=== PATIENT | female | born 1995 ===

== ENCOUNTER 2018-06-09 09:13 | Emergency (ER) | payer OTHER ==
[2018-06-09 09:38] VITALS: BP 118/67
--- NOTE | 2018-06-09 09:56 | UC ---
Complaint Female HPI - HPI Summary HPI Summary: This is peng Hernandez documenting for Dr. Oli Ortiz MD. Pt is 22 y/o F who presents to [facility] c/o dysuria, frequency, and urgency for last 2 days. Pt states on 05/21/18 she was diagnosed with a UTI while traveling in [place] and was on placed on ciprofloxacin for 7 days per nurse's report. Her symptoms improved, but 2 days ago she started to have discomfort again with urination, which has now gotten worse. Rates her pain intensity as 3/10 in severity. Notes intermittent back pain and chills. [place] hot last night. Denies abdominal pain. - History Of Current Complaint Chief Complaint: UCGU Stated Complaint: URINARY COMPLAINT Time Seen by Provider: 06/09/18 09:25 Hx Obtained From: Patient Hx Last Menstrual Period: iud Onset/Duration: Lasting Days, Still Present Severity Initially: Mild Severity Currently: Mild Pain Intensity: 3 Pain Scale Used: 0-10 Numeric Associated Signs And Symptoms: Positive: Back Pain - Allergies/Home Medications Allergies/Adverse Reactions: Allergies Allergy/AdvReac Type Severity Reaction Status Date / Time hydrocodone Allergy Nausea Verified 06/09/18 09:30 Home Medications: Home Medications Levonorgestrel (Iud) [Mirena IUD] 1 .ROUTE 06/09/18 [History] PMH/Surg Hx/FS Hx/Imm Hx Endocrine History: Diabetes - NEGATIVE Cardiovascular History: Hypertension - NEGATIVE - Surgical History Surgical History: Yes Surgery Procedure, Year, and Place: Jaw surgery on 06/05/18 - Family History Known Family History: Negative: Hypertension - Social History Alcohol Use: Weekly Substance Use Type: None Smoking Status (MU): Former Smoker Review of Systems Constitutional: Chills Gastrointestinal: Abdominal Pain - NEGATIVE Genitourinary: Dysuria, Frequency, Urgency Musculoskeletal: Other: - Intermittent back pain All Other Systems Reviewed And Are Negative: Yes Physical Exam - Summary Physical Exam Summary: VITAL SIGNS: Reviewed. GENERAL: Patient is a well-developed and nourished female who is lying comfortable in the stretcher. Patient is not in any acute respiratory distress. HEAD AND FACE: Normocephalic EYES: PERRLA, EOMI x 2. EARS: Hearing grossly intact. MOUTH: Oropharynx within normal limits. NECK: Supple, trachea is midline, no adenopathy, no JVD, no carotid bruit. CHEST: Symmetric, no tenderness at palpation LUNGS: Clear to auscultation bilaterally. No wheezing or crackles. CVS: Regular rate and rhythm, S1 and S2 present, no murmurs or gallops appreciated. ABDOMEN: Soft, non-tender. Bowel sounds are normal. No abdominal abnormal pulsations. EXTREMITIES: Full ROM in all major joints, no edema, no cyanosis or clubbing. NEURO: Alert and oriented x 3. No acute neurological deficits. Speech is normal and follows commands. SKIN: Dry and warm Triage Information Reviewed: Yes Vital Signs: Initial Vital Signs Temp 99.3 F 06/09/18 09:31 Pulse 98 06/09/18 09:31 Resp 16 06/09/18 09:31 BP 118/67 06/09/18 09:31 Pulse Ox 98 06/09/18 09:31 Vital Signs Reviewed: Yes Complaint Female Dx - Course Course Of Treatment: Patient is a 22-year-old female who presents to the emergency room with a chief complaint of having dysuria, urinary frequency and urgency. Urinalysis has positive leukocytes. Therefore the patient will be given a prescription for ciprofloxacin and discharged home with follow-up with primary care physician. We will send the urine for cultures. The patient is hemodynamically stable and alert 3. - Differential Dx/Diagnosis Differential Diagnosis/HQI/PQRI: Pelvic Inflammatory Disease, Sexually Transmitted Disease, Urinary Tract Infection Provider Diagnoses: Urinary tract infection Discharge - Sign-Out/Discharge Documenting (check all that apply): Patient Departure - Discharge Plan Condition: Stable Disposition: HOME Prescriptions: Ciprofloxacin TAB* [Cipro 500 MG TAB*] 500 mg PO BID #6 tab Patient Education Materials: Urinary Tract Infection in Women (DC) [place]: [facility] [place] [facility] [Outside] No Primary Care Phys,NOPCP [Primary Care Provider] - Additional Instructions: Take medications as instructed and adhere to plan Take Acetaminophen or ibuprofen for pain or fever Increase your fluid intake Return to the or go to the emergency department if symptoms worsen Follow-up with primary care physician in next 2-3 days - Billing Disposition and Condition Condition: STABLE Disposition: Home
--- NOTE | 2018-06-10 17:28 | UC ---
- Progress Note Progress Note: Urine culture preliminary report with moderate Escherichia coli. Patient on ciprofloxacin, recommend no treatment at this time and plan to follow up on final sensitivity report. Discharge - Sign-Out/Discharge Documenting (check all that apply): Post-Discharge Follow Up - Discharge Plan Condition: Stable Disposition: HOME Prescriptions: Ciprofloxacin TAB* [Cipro 500 MG TAB*] 500 mg PO BID #6 tab Patient Education Materials: Urinary Tract Infection in Women (DC) Referrals: [facility] [place] [facility] [Outside] No Primary Care Phys,NOPCP [Primary Care Provider] - Additional Instructions: Take medications as instructed and adhere to plan Take Acetaminophen or ibuprofen for pain or fever Increase your fluid intake Return to the or go to the emergency department if symptoms worsen Follow-up with primary care physician in next 2-3 days - Billing Disposition and Condition Condition: STABLE Disposition: Home
--- NOTE | 2018-06-11 21:34 | UC ---
- Progress Note Progress Note: 06/11/2018 Urine culture positive for E.coli. Pt Rx Ciprofloxacin PO. Urine culture final: resistance to Ciprofloxacin PO. New Rx sent to pharmacy for Bactrim PO BID x 7 days. Please call Pt back and let her know of new change in medication. Thank you Stephanie Juarez PA-C Discharge - Sign-Out/Discharge Documenting (check all that apply): Patient Departure - D/c home - Discharge Plan Condition: Stable Disposition: HOME Prescriptions: Sulfamethox/Trimethoprim DS* [Bactrim DS 800/160 TAB*] 1 tab PO BID #14 tab Patient Education Materials: Urinary Tract Infection in Women (DC) [place] [facility] [place] [facility] [place]Outside] No Primary Care Phys,NOPCP [Primary Care Provider] - Additional Instructions: Take medications as instructed and adhere to plan Take Acetaminophen or ibuprofen for pain or fever Increase your fluid intake Return to the or go to the emergency department if symptoms worsen Follow-up with primary care physician in next 2-3 days - Billing Disposition and Condition Condition: STABLE Disposition: Home
== END 2018-06-09 10:00 | disposition home or self-care (01) ==
LOC: UCEAST 09:13
DX: N39.0 Urinary tract infection, site not specified (principal); B96.20 Unspecified Escherichia coli [E. coli] as the cause of diseases classified elsewhere; Z97.5 Presence of (intrauterine) contraceptive device; Z88.5 Allergy status to narcotic agent; Z87.891 Personal history of nicotine dependence
CPT/HCPCS: 81003; 87077; 87086; 87186; 99202; G0463